=== PATIENT | female | born 1945 | race Caucasian/White ===

== ENCOUNTER 2016-05-16 12:00 | Inpatient (IN) | payer OTHER ==
[2016-05-16] MEDS ORDERED: TUSSIONEX PENNKINETIC SUSP PO PRN (13:56)
[2016-05-16] MEDS ORDERED: NS 1/2 1000 ML IV 1,000 ML IV ONE (14:04)
[2016-05-16] MEDS: NS 1/2 1000 ML IV 1,000 ML IV SCH (14:25)
[2016-05-16] MEDS: ROBITUSSIN DM PO SCH ×3 (14:26→20:33)
[2016-05-16] MEDS: LEVAQUIN PREMIX IV 750 MG 750 MG/150 ML BAG IV SCH (14:29)
[2016-05-16] MEDS ORDERED: XANAX PO ONE (15:00)
[2016-05-16 15:08] LABS: BASOPHILS # (AUTO) 0.1 X10^3/uL (0.0-0.1); BASOPHILS % (AUTO) 0.7 % (0.2-1.0); EOSINOPHILS # (AUTO) 0.3 x10^3/uL (0.0-0.2); EOSINOPHILS % (AUTO) 2.4 % (0.9-2.9); HEMATOCRIT 46.5 % (36.0-47.0); HEMOGLOBIN 15.5 g/dL (12.0-16.0); LYMPHOCYTES # (AUTO) 4.6 X10^3/uL (1.3-2.9); LYMPHOCYTES % (AUTO) 36.1 % (21.0-51.0); MEAN CORPUSCULAR HEMOGLOBIN 31.8 pg (27.0-34.0); MEAN CORPUSCULAR HGB CONC 33.3 g/dL (33.0-35.0); MEAN CORPUSCULAR VOLUME 95.4 fL (80.0-100.0); MEAN PLATELET VOLUME 9.9 fL (7.4-11.0); MONOCYTES # (AUTO) 0.9 x10^3/uL (0.3-0.8); MONOCYTES % (AUTO) 7.3 % (0.0-13.0); NEUTROPHILS # (AUTO) 6.8 x10^3/uL (2.2-4.8); NEUTROPHILS % (AUTO) 53.5 % (42.0-75.0); PLATELET COUNT 287 X10^3/uL (150.0-450.0); RED BLOOD COUNT 4.87 X10^6/uL (3.5-5.4); RED CELL DISTRIBUTION WIDTH 12.8 % (11.6-16.5); WHITE BLOOD COUNT 12.8 X10^3/uL (3.6-10.0)
[2016-05-16] MEDS: DUONEB 0.5 MG/3 MG NEB SCH ×3 (15:09→20:11)
[2016-05-16 16:06] LABS: ALANINE AMINOTRANSFERASE 52 Units/L (12-78); ALBUMIN 3.6 g/dL (3.4-5.0); ALKALINE PHOSPHATASE 71 Units/L (46-116); ASPARTATE AMINO TRANSFERASE 21 Units/L (15-37); BLOOD UREA NITROGEN 22 mg/dL (7-18); CALCIUM 8.7 mg/dL (8.5-10.1); CHLORIDE 107 mmol/L (98-107); CREATININE 0.88 mg/dL (0.55-1.02); GLUCOSE 96 mg/dL (65-99); SODIUM 143 mmol/L (136-145); eGFR BLACK RACES > 60 (>60); eGFR NON BLACK RACES > 60 (>60)
[2016-05-16] MEDS: ADVAIR IN SCH (20:09)
[2016-05-16] MEDS: RESTORIL CAP 30 MG PO SCH (20:32)
[2016-05-16] MEDS: NORCO 5/325 MG TAB PO SCH (20:32)
[2016-05-16] MEDS: KLONOPIN TAB 0.5 MG PO PRN (20:32)
[2016-05-17] MEDS: DUONEB 0.5 MG/3 MG NEB SCH ×6 (00:37→21:03)
[2016-05-17] MEDS ORDERED: NS 1/2 1000 ML IV 1,000 ML IV ONE ×2 (03:20→23:57)
[2016-05-17] MEDS: NS 1/2 1000 ML IV 1,000 ML IV SCH (03:24)
[2016-05-17 06:17] LABS: BASOPHILS % (AUTO) 0.3 % (0.2-1.0); EOSINOPHILS # (AUTO) 0.3 x10^3/uL (0.0-0.2); EOSINOPHILS % (AUTO) 2.9 % (0.9-2.9); HEMOGLOBIN 13.8 g/dL (12.0-16.0); LYMPHOCYTES # (AUTO) 4.2 X10^3/uL (1.3-2.9); MEAN CORPUSCULAR HEMOGLOBIN 31.5 pg (27.0-34.0); MEAN CORPUSCULAR HGB CONC 32.9 g/dL (33.0-35.0); MEAN CORPUSCULAR VOLUME 95.7 fL (80.0-100.0); MEAN PLATELET VOLUME 9.5 fL (7.4-11.0); MONOCYTES # (AUTO) 0.7 x10^3/uL (0.3-0.8); MONOCYTES % (AUTO) 7.4 % (0.0-13.0); NEUTROPHILS # (AUTO) 4.3 x10^3/uL (2.2-4.8); NEUTROPHILS % (AUTO) 45.4 % (42.0-75.0); PLATELET COUNT 235 X10^3/uL (150.0-450.0); RED BLOOD COUNT 4.39 X10^6/uL (3.5-5.4); RED CELL DISTRIBUTION WIDTH 13.1 % (11.6-16.5); WHITE BLOOD COUNT 9.5 X10^3/uL (3.6-10.0)
[2016-05-17 07:35] LABS: ALANINE AMINOTRANSFERASE 42 Units/L (12-78); ALBUMIN 2.9 g/dL (3.4-5.0); ALKALINE PHOSPHATASE 53 Units/L (46-116); ASPARTATE AMINO TRANSFERASE 22 Units/L (15-37); BLOOD UREA NITROGEN 16 mg/dL (7-18); CALCIUM 8.1 mg/dL (8.5-10.1); CARBON DIOXIDE 24.6 mmol/L (21-32); CHLORIDE 109 mmol/L (98-107); CREATININE 0.75 mg/dL (0.55-1.02); GLUCOSE 92 mg/dL (65-99); SODIUM 145 mmol/L (136-145); TOTAL PROTEIN 5.6 g/dL (6.4-8.2); eGFR BLACK RACES > 60 (>60); eGFR NON BLACK RACES > 60 (>60)
--- NOTE | 2016-05-17 08:21 | RAD ---
Chest, one view Indication: Cough. Comparison: None Findings: The patient is significantly rotated to the left. The cardiac silhouette appears mildly en larged. The lungs are hypoinflated, but no dense infiltrate, large effusion, or pneumothorax is iden tified. No overt pulmonary edema is appreciated. The bones appear osteopenic. Impression: Limited exam due to patient rotation. Cardiomegaly without CHF or other acute chest process identifi ed. Reported By:
[2016-05-17] MEDS ORDERED: SYMBICORT INH 160/4.5 mcg IN SCH (09:00)
[2016-05-17] MEDS: LEVAQUIN PREMIX IV 750 MG 750 MG/150 ML BAG IV SCH (09:01)
[2016-05-17] MEDS: ROBITUSSIN DM PO SCH ×4 (09:01→20:30)
[2016-05-17] MEDS: LOPRESSOR TAB 50 MG PO SCH (09:01)
[2016-05-17] MEDS: ADVAIR IN SCH ×2 (09:37→21:03)
[2016-05-17] MEDS: NORCO 5/325 MG TAB PO SCH (10:14)
[2016-05-17] MEDS ORDERED: NORCO 5/325 MG TAB PO PRN (10:15)
[2016-05-17 10:56] VITALS: BMI 38.2
[2016-05-17] MEDS: KLONOPIN TAB 0.5 MG PO PRN (13:04)
[2016-05-17] MEDS: RESTORIL CAP 30 MG PO SCH (20:30)
[2016-05-18] MEDS: NS 1/2 1000 ML IV 1,000 ML IV SCH ×2 (00:03→08:35)
[2016-05-18] MEDS: DUONEB 0.5 MG/3 MG NEB SCH ×3 (01:50→08:32)
[2016-05-18 05:23] LABS: BASOPHILS % (AUTO) 0.4 % (0.2-1.0); EOSINOPHILS # (AUTO) 0.3 x10^3/uL (0.0-0.2); EOSINOPHILS % (AUTO) 3.6 % (0.9-2.9); HEMOGLOBIN 13.5 g/dL (12.0-16.0); LYMPHOCYTES # (AUTO) 3.4 X10^3/uL (1.3-2.9); LYMPHOCYTES % (AUTO) 40.9 % (21.0-51.0); MEAN CORPUSCULAR HEMOGLOBIN 32.4 pg (27.0-34.0); MEAN CORPUSCULAR HGB CONC 33.9 g/dL (33.0-35.0); MEAN CORPUSCULAR VOLUME 95.6 fL (80.0-100.0); MEAN PLATELET VOLUME 9.2 fL (7.4-11.0); MONOCYTES # (AUTO) 0.7 x10^3/uL (0.3-0.8); MONOCYTES % (AUTO) 8.9 % (0.0-13.0); NEUTROPHILS # (AUTO) 3.8 x10^3/uL (2.2-4.8); NEUTROPHILS % (AUTO) 46.2 % (42.0-75.0); PLATELET COUNT 212 X10^3/uL (150.0-450.0); RED BLOOD COUNT 4.18 X10^6/uL (3.5-5.4); RED CELL DISTRIBUTION WIDTH 12.9 % (11.6-16.5); WHITE BLOOD COUNT 8.2 X10^3/uL (3.6-10.0)
[2016-05-18 05:39] LABS: ALANINE AMINOTRANSFERASE 37 Units/L (12-78); ALKALINE PHOSPHATASE 56 Units/L (46-116); ASPARTATE AMINO TRANSFERASE 21 Units/L (15-37); BLOOD UREA NITROGEN 15 mg/dL (7-18); CALCIUM 8.3 mg/dL (8.5-10.1); CARBON DIOXIDE 23.5 mmol/L (21-32); CHLORIDE 110 mmol/L (98-107); COR CA(FOR HYPOALB) 9.1 mg/dL (8.5-10.1); CREATININE 0.71 mg/dL (0.55-1.02); GLUCOSE 110 mg/dL (65-99); SODIUM 144 mmol/L (136-145); TOTAL PROTEIN 5.8 g/dL (6.4-8.2); eGFR BLACK RACES > 60 (>60); eGFR NON BLACK RACES > 60 (>60)
--- NOTE | 2016-05-18 06:58 | RAD ---
Chest, one view Indication: Cough Comparison: 05/17/2016 Findings: Cardiomegaly is unchanged. There is mild pulmonary vascular congestion with streaky right perihilar opacities. No overt edema, large effusion or pneumothorax identified. Impression: Stable cardiomegaly without overt edema. Right perihilar opacities could represent atele ctasis or infiltrate. Reported By:
[2016-05-18 08:03] VITALS: BP 121/62
[2016-05-18] MEDS: ADVAIR IN SCH (08:32)
[2016-05-18] MEDS: LEVAQUIN PREMIX IV 750 MG 750 MG/150 ML BAG IV SCH (08:35)
[2016-05-18] MEDS: LOPRESSOR TAB 50 MG PO SCH (08:36)
[2016-05-18] MEDS: ROBITUSSIN DM PO SCH (08:36)
[2016-05-18] MEDS ORDERED: LEVAQUIN TAB 750 MG PO ONE (09:03)
--- NOTE | 2016-05-18 13:08 | PCM.PROG ---
Progress Note - Progress Note for Day of Date: 05/17/16 - Subjective Subjective: PATIENT IS NOTED WITH A COARSE, NON-PRODUCTIVE COUGH UPON ROUNDS. ON AUSCULTATION, LUNGS ARE NOTED WITH SCATTERED WHEEZES AND RHONCHI. PATIENT CONTINUES ON TREATMENT FOR BRONCHOPNEUMONIA WITH IV LEVAQUIN, DUONEBS, ADVAIR, IV FLUIDS, AND SUPPLEMENTAL OXYGEN. PATIENT HAS FAILED OUTPATIENT TREATMENT WITH ORAL ZITHROMAX, MEDROL DOSEPAK, AND NEB TREATMENTS AT HOME. PATIENT REPORTS SHE IS FEELING BETTER TODAY WITH CURRENT TREATMENT. PATIENT AFEBRILE. CBC WNL. CMP WNL EXCEPT: CHL 109, CALCIUM 8.1, TOT PROTEIN 5.6, ALBUMIN 2.9. WE WILL CONTINUE CURRENT TREATMENT AND FOLLOW UP IN AM WITH LABS AND CHEST XRAY. WE WILL PLAN FOR DISCHARGE IN AM. - Past Medical Family Social History Past Med/Fam/Surg Hx: No changes since H&P Allergies: Allergies Aspirin [From ASA Compound] Allergy (Unknown, Verified 05/16/16 13:55) Caffeine [From ASA Compound] Allergy (Unknown, Verified 05/16/16 13:55) Phenacetin [From ASA Compound] Allergy (Unknown, Verified 05/16/16 13:55) - Review of Systems ROS: No change since H&P - Vital Signs and I&O's Vital Signs: Temperature 97.7 F Pulse Rate [Left Brachial] 69 Pulse Rate 74 Respiratory Rate 18 Blood Pressure [Right Arm] 132/79 Blood Pressure [Left Arm] 121/62 O2 Sat by Pulse Oximetry 95 Intake and Output: Intake & Output 05/16/16 05/17/16 05/18/16 05/19/16 11:59 11:59 11:59 11:59 Intake Total 1543 2449 Balance 1543 2449 - Physical Exam Oriented: Normal, Time, Person, Place Eyes: Normal. negative: Blurred Vision, Diplopia, Discharge, Pain, Redness, Photophobia Ear: Normal. negative: Swelling, Ecchymosis, Hemotypanum, Abrasion, Laceration Nose: Normal. negative: Injected, Discharge, Blood Throat: Dry. negative: Tonsillar Hypertrophy, Exudate Respiratory: Generalized, Wheezes, Rhonchi Cardiovascular: Normal. negative: Murmur, Edema : Normal. negative: Dysuria, Hematuria, Frequency, Discharge, Bleeding, Auscultation: Bowel Sounds: Normal. negative: Bruit Palpation: Normal. negative: Spleen Enlarged, Liver Enlarged, Mass Pulsatile Tenderness: Normal. negative: Rebound, Guarding, Rigidity Skin: Normal. negative: Diaphoresis, Wound, Bruising, Ecchymosis Musculoskeletal: Normal Psychiatric: Normal Mood Description: Calm, Appropriate Affect: Normal Speech Pattern: Clear, Appropriate - Laboratory and Diagnostics Result Diagrams: 05/18/16 04:22 05/18/16 04:22 Labs: 05/16/16 15:28 Sputum - Expectorated Sputum Sputum Culture - Final 05/16/16 15:28 Sputum - Expectorated Sputum - Final Laboratory WBC 8.2 X10^3/uL (3.6-10.0) 05/18/16 04:22 RBC 4.18 X10^6/uL (3.5-5.4) 05/18/16 04:22 Hgb 13.5 g/dL (12.0-16.0) 05/18/16 04:22 Hct 40.0 % (36.0-47.0) 05/18/16 04:22 MCV 95.6 fL (80.0-100.0) 05/18/16 04:22 MCH 32.4 pg (27.0-34.0) 05/18/16 04:22 MCHC 33.9 g/dL (33.0-35.0) 05/18/16 04:22 RDW 12.9 % (11.6-16.5) 05/18/16 04:22 Plt Count 212 X10^3/uL (150.0-450.0) 05/18/16 04:22 MPV 9.2 fL (7.4-11.0) 05/18/16 04:22 Neut % 46.2 % (42.0-75.0) 05/18/16 04:22 Lymph % 40.9 % (21.0-51.0) 05/18/16 04:22 Jefferson % 8.9 % (0.0-13.0) 05/18/16 04:22 Eos % 3.6 % (0.9-2.9) H 05/18/16 04:22 Baso % 0.4 % (0.2-1.0) 05/18/16 04:22 Neut # 3.8 x10^3/uL (2.2-4.8) 05/18/16 04:22 Lymph # 3.4 X10^3/uL (1.3-2.9) H 05/18/16 04:22 Jefferson # 0.7 x10^3/uL (0.3-0.8) 05/18/16 04:22 Eos # 0.3 x10^3/uL (0.0-0.2) H 05/18/16 04:22 Baso # 0.0 X10^3/uL (0.0-0.1) 05/18/16 04:22 Absolute Nucleated RBC 0.0 /100WBC 05/18/16 04:22 Sodium 144 mmol/L (136-145) 05/18/16 04:22 Corrected Sodium TNP 05/18/16 04:22 Potassium 4.0 mmol/L (3.5-5.1) 05/18/16 04:22 Chloride 110 mmol/L (98-107) H 05/18/16 04:22 Carbon Dioxide 23.5 mmol/L (21-32) 05/18/16 04:22 BUN 15 mg/dL (7-18) 05/18/16 04:22 Creatinine 0.71 mg/dL (0.55-1.02) 05/18/16 04:22 Est GFR (MDRD) Af Amer > 60 (>60) 05/18/16 04:22 Est GFR (MDRD) Non-Af > 60 (>60) 05/18/16 04:22 Glucose 110 mg/dL (65-99) H 05/18/16 04:22 Calcium 8.3 mg/dL (8.5-10.1) L 05/18/16 04:22 Corrected Calcium 9.1 mg/dL (8.5-10.1) 05/18/16 04:22 Total Bilirubin 0.40 mg/dL (0.2-1.0) 05/18/16 04:22 AST 21 Units/L (15-37) 05/18/16 04:22 ALT 37 Units/L (12-78) 05/18/16 04:22 Alkaline Phosphatase 56 Units/L (46-116) 05/18/16 04:22 Total Protein 5.8 g/dL (6.4-8.2) L 05/18/16 04:22 Albumin 3.0 g/dL (3.4-5.0) L 05/18/16 04:22 Globulin 2.8 g/dL (2.5-4.5) 05/18/16 04:22 Albumin/Globulin Ratio 1.1 Ratio (1.1-2.1) 05/18/16 04:22 - Plan (1) Bronchopneumonia Status: Acute Plan: CONTINUE PNEUMONIA PROTOCOL: IV LEVAQUIN, DUONEBS, ROBITUSSIN, TUSSIONEX, SUPPLEMENTAL OXYGEN, MONITOR LABS AND CHEST XRAY. (2) Hx of essential hypertension Status: Chronic (3) Back pain Status: Chronic Qualifiers: Back pain location: low back pain Chronicity: chronic Back pain laterality: bilateral Sciatica presence: without sciatica Sciatica laterality: S Qualified Code(s): M54.5 - Low back pain; G89.29 - Other chronic pain (4) Anxiety Status: Chronic (5) Asthma Status: Chronic Qualifiers: Asthma severity: mild intermittent Asthma complication type: uncomplicated Qualified Code(s): J45.20 - Mild intermittent asthma, uncomplicated (6) Insomnia Status: Chronic Qualifiers: Insomnia type: primary Qualified Code(s): F51.01 - Primary insomnia
== END 2016-05-18 10:00 | disposition home or self-care (01) | DRG 195 ==
LOC: MED/SURG 12:00
PROVIDERS: ADMIT Internal Medicine; ATTEND Internal Medicine
DX: J18.0 Bronchopneumonia, unspecified organism (principal); J40 Bronchitis, not specified as acute or chronic; I10 Essential (primary) hypertension; M54.5 Low back pain; F41.8 Other specified anxiety disorders; J45.20 Mild intermittent asthma, uncomplicated; F51.01 Primary insomnia
CPT/HCPCS: 36415; 71010; 80053; 85025; 87040; 87205; 94640; 94760; A4222; J1956; J7620

== ENCOUNTER → 2016-10-23 | Outpatient (CLI) | payer OTHER ==
--- NOTE | 2016-10-23 15:14 | CT ---
STUDY: CT HEAD WITHOUT CONTRAST HISTORY: Headaches. Vision changes. Confusion. COMPARISON: None. TECHNIQUE: Multiple axial images of the head were obtained from the skull base to the vertex without administration of IV contrast. Automated exposure control (AEC) was utilized to adjust the MA and/or kV. Findings: The sulci, cisterns and ventricles are age appropriate. There are scattered foci of low att enuation in the periventricular and subcortical white matter of both hemispheres. This is a nonspecif ic finding which likely represents microangiopathic change in a patient of this age. There is no evidence of acute territorial infarction, hemorrhage, mass, mass effect or midline shift. There are no abnormal extra-axial fluid collections. There is no evidence of acute osseous abnormali ty or significant soft tissue swelling. IMPRESSION: 1. No evidence of acute intracranial abnormality. 2. Nonspecific white matter change as described. 3. If there remains strong clinical concern for acute intracranial abnormality, then an MRI examinati on should be considered for further evaluation. Reported By:
== END | disposition home or self-care (01) | DRG 103 ==
LOC: RAD 14:46
PROVIDERS: ATTEND Internal Medicine
DX: R51 Headache (principal); H53.8 Other visual disturbances; R41.0 Disorientation, unspecified
CPT/HCPCS: 70450